=== PATIENT | female | born 2000 | race Caucasian/White ===

== ENCOUNTER 2018-10-03 20:32 | Emergency (ER) | payer OTHER ==
[~2018-10-03] VITALS: Ht 157.5 cm; Wt 49.9 kg
[2018-10-03 20:35] VITALS: BP 104/69
--- NOTE | 2018-10-03 20:40 | NUR ---
PT AMBULATED W/ STEADY GATE BACK TO LOBBY, VSS, PT ACTING APPROPRIATLY.
--- NOTE | 2018-10-03 21:02 | NUR ---
PT AMBULATED TO BED 6.
--- NOTE | 2018-10-03 21:09 | NUR ---
18 Y FEMALE BIB SELF C/O CHEST PAIN. PT STATES SHE WAS SLEEPING 30 MIN AGO AND WOKE UP TO 8/10 SQUEEZING CHEST PAIN AND NUMBESS THROUGH OUT LEFT SIDE OF BODY, DENIES TRAUMA. +NAUSEA, +VOMITING. PT ACTING APPROPRIATLY. SPEECH IS CLEAR, [id number]. BED IS DOWN, LOCKED, BED RAIL X 1, ERMD NOTIFIED. --SMILE SYMETTRICAL, SPEECH CLEAR. BILATERAL HAND RELIEF PHARMACIST WNL. PMH: DENIES RX: PRENATALS
--- NOTE | 2018-10-03 21:10 | NUR ---
EKG PERFORMED AT BEDSIDE. PT COVERED IN GOWN DURING PROCEDURE
--- NOTE | 2018-10-03 21:18 | NUR ---
DR GONZALEZ AT BEDSIDE
[2018-10-03 21:33] VITALS: BP 104/69
--- NOTE | 2018-10-03 21:33 | NUR ---
Patient discharged with v/s stable. Written and verbal after care instructions given and explained. Patient verbalized understanding. Ambulatory with steady gait. All questions addressed prior to discharge. Advised to follow up with PMD.
--- NOTE | 2018-10-03 21:33 | NUR ---
PT DISCHARGED BY DR GONZALEZ
== END 2018-10-03 21:33 | disposition home or self-care (01) ==
LOC: MED 20:32
DX: O90.89 Other complications of the puerperium, not elsewhere classified (principal); G47.00 Insomnia, unspecified; R20.0 Anesthesia of skin
CPT/HCPCS: 93005; 99283